=== PATIENT | male | born 1970 | race Caucasian/White ===

== ENCOUNTER 2016-11-24 16:49 | Emergency (ER) | payer SELFPAY ==
[2016-11-24 17:04] VITALS: BP 140/94; PULSE 76; TEMP 98.2; BMI 34.8
== END 2016-11-24 18:51 | disposition left against medical advice (07) ==
LOC: JER 16:49
DX: Z53.21 Procedure and treatment not carried out due to patient leaving prior to being seen by health care provider (principal)
CPT/HCPCS: 99281-25